=== PATIENT | female | born 1945 | race Caucasian/White ===

== ENCOUNTER 2017-09-07 10:11 | Day surgery (SDC) | payer BC ==
--- NOTE | 2017-09-06 17:46 | History and Physical Report ---
DATE: 09/06/2017. CHIEF COMPLAINT AND HISTORY OF CHIEF COMPLAINT: This is a patient with complicated pain which is currently being managed by spinal cord stimulator and an implanted spinal infusion system with hydromorphone. She is here for not only pump battery change but also spinal cord stimulator battery change. Her spinal infusion is hydromorphone at 2.5 mg a day. The spinal cord stimulator generator is in the left posterior gluteal margin, and the pump generator is in the right posterior gluteal margin. PAST MEDICAL HISTORY: Chronic obstructive pulmonary disease, peripheral neuropathy, asthmatic bronchitis, chronic bladder symptoms, reflux esophagitis, degenerative arthritis, depression, difficulty sleeping. PAST SURGICAL HISTORY: Carpal tunnel release, hysterectomy, spinal cord stimulator implant, spinal pump implant. EMPLOYMENT STATUS: Retired. MEDICATIONS ON ADMISSION: List provided. ALLERGIES: List provided. SOCIAL HISTORY: Noncontributory. FAMILY HISTORY: Asthma. PHYSICAL EXAMINATION: General: Height and weight are not known. Vital Signs: Unavailable. HEENT: Within normal limits. Lungs: Clear. Heart: Regular rate and rhythm. Abdomen: Nontender. Musculoskeletal: Examination of the musculoskeletal system shows the generators for the stimulator and the pump at the respective posterior gluteal margins. The pain pattern appears to be somewhat more radicular than focused; although there is diffuse pain and tenderness across the low back. Lower extremity functionality shows the indications of surgery bilaterally in the lower extremities focusing on the ankle and feet. There is a sensory deficit across both lower extremities following both an L4 and L5 pattern. There are motor deficits with weakness in the lower extremities, somewhat more right than left. Ambulation: Assistive device utilized. Neurologic: Cranial nerves are intact. IMPRESSION: 1. INTRACTABLE LUMBAR RADICULITIS, ICD-10 CODE M54.16 AND M54.17. 2. IMPLANTED SPINAL INFUSION SYSTEM WITH HYDROMORPHONE AND SPINAL CORD STIMULATOR, BOTH WITH BATTERY DEPLETION. PLAN: The patient is here for replacement of the pump and generator battery on an outpatient basis. There will be no changes made to the infusion characteristics of the pump, and stimulation patterns should remain unchanged with respect to the spinal cord stimulator. We will consider the procedure outpatient; although an overnight stay may be evaluated. JOB NUMBER: [id number] cc: Ed Yarbrough
[~2017-09-07 10:11] MED LIST: ACETAMINOPHEN 1,000 MG/100 ML BTL IV ONE; CLINDAMYCIN 600MG/50ML PREMIX 600 MG/50 ML BAG IVPB ONE; FAMOTIDINE 20MG TABLET PO ONE; HYDROMORPHONE HCL 0.4 GM in 0.9 % SODIUM CHLORIDE 10ML VIA 20 ML IV ONE; HYDROMORPHONE PF 2MG/ML AMP 0.004 MG in 0.9 % SODIUM CHLORIDE 10ML VIA 0.998 ML IV ONE; MECLIZINE 25 MG TABLET PO ONE; METOCLOPRAMIDE 10 MG TABLET PO ONE
[2017-09-07] MEDS ORDERED: BUPIVACAINE 0.5% W/EPI MPF 30 ML VIAL IVP ONE (10:12)
[2017-09-07] MEDS ORDERED: HYDROMORPHONE HCL 2 MG/ML VIAL IV ONE (10:12)
[2017-09-07] MEDS ORDERED: PROPOFOL 10 MG/ML VIAL IV ONE (10:12)
[2017-09-07] MEDS ORDERED: CLINDAMYCIN (PEDIATRIC DOSING) 150 MG/ML VIAL IVPB ONE (10:12)
[2017-09-07] MEDS ORDERED: LIDOCAINE 2% MDV (20MG/ML) 20ML VIAL IV ONE (10:12)
[2017-09-07] MEDS ORDERED: LIDOCAINE 1% W/EPI 1:200,000 MPF 30ML SQ ONE (10:12)
--- NOTE | 2017-09-07 16:05 | Operative Note - [place] ---
DATE OF SURGERY: 09/07/17 PREOPERATIVE DIAGNOSES: 1. INTRACTABLE LUMBAR RADICULITIS, ICD-10 CODE = M54.16. 2. POST CERVICAL LAMINECTOMY SYNDROME, ICD-10 CODE = M96.1. 3. SPINAL CORD STIMULATOR WITH INTERNAL GENERATOR DEPLETION, RIGHT FLANK. 4. SPINAL OPIOID INFUSION SYSTEM HYDROMORPHONE WITH BATTERY DEPLETION PROGRAMMABLE PUMP, LEFT POSTERIOR/SUPERIOR GLUTEAL MARGIN. OPERATION: 1. INCISION, SUBCUTANEOUS DISSECTION, AND REMOVAL AND REPLACEMENT OF PROGRAMMABLE PUMP AT LEFT POSTERIOR GLUTEAL MARGIN MEDTRONIC 20 ML PROGRAMMABLE PRE-FILLED HYDROMORPHONE 20 MG PER ML. 2. DIAGNOSTIC MYELOGRAPHY USING ACCESS PORT PROGRAMMABLE PUMP WITH RADIOLOGIC SUPERVISION AND INTERPRETATION. 3. CLOSURE OF INCISION VICRYL FOR FASCIA, RUNNING SUBCUTICULAR VICRYL FOR SKIN. DERMABOND CLOSURE. 4. INCISION, SUBCUTANEOUS DISSECTION, AND OPENING OF RIGHT FLANK INCISIONAL POUCH FOR SPINAL CORD STIMULATOR. 5. REMOVAL OF NONFUNCTIONING BATTERY DEPLETED GENERATOR, [employer]. REPLACEMENT WITH NONRECHARGEABLE [employer] INTERNAL PULSE GENERATOR INTERFACED TO LEADS. 6. CLOSURE OF INCISIONS VICRYL FOR FASCIA, RUNNING SUBCUTICULAR VICRYL FOR SKIN. 7. PROGRAMMING OF GENERATOR, COMPLEX PROGRAMMING, RECOVERY ROOM, 20 MINUTES. SURGEON: TOMMIE BROWN D.O. ANESTHESIA: LOCAL SEDATION. ANESTHESIA PROVIDER: KARLA PURCELL CRNA INDICATION: This patient with a history of intractable post cervical laminectomy syndrome and an intractable radiculitis, lumbar spine, has a spinal infusion system infusing Hydromorphone and a spinal cord stimulator; the stimulator generator has depleted and is nonfunctional. The spinal infusion pump battery is depleted. She is here for replacement of pump battery with appropriate diagnostics and replacement of internal pulse generator for spinal cord stimulator with replacement nonrechargeable. PROCEDURE: Intravenous line, vital sign monitoring, IV sedation, prepped and draped sterile technique. Patient position prone. The pump at the left posterior gluteal margin incision was identified. Skin infiltrated, incision made, and subcutaneous dissection was conducted to the pouch. The pouch was opened and the pump exteriorized. The pump was then from the internal catheter. The pump was then replaced with a new pump pre-filled Hydromorphone 20 mg per mL and placed onto the field. New pump was then interfaced with the existing spinal catheter, which had to be resected out of dense scar tissue within the posterior pouch. Antibiotic irrigation and Bovie for hemostasis. The new pump interfaced with the existing catheter was then placed back into the pouch and secured to the fascia with a nonabsorbable suture through one single pump eyelet. A curved #24-gauge Francois needle was inserted into the access port and 1 mL of catheter content was aspirated clearing the catheter of opioid and CSF mixture. Diagnostic myelography was then performed with contrast injected through the access port. Flow of contrast through the pump catheter connection into the spinal space at T7 confirmed appropriate and full functionality of the system. The incision was then closed Vicryl and a running subcuticular Vicryl for skin. Dermabond closure to approximate the edges of the wound. At the right flank, spinal cord stimulator generator, skin infiltrated, incision made, and subcutaneous dissection was conducted to the generator. The generator was then exteriorized and from the indwelling leads. A nonrechargeable battery , [employer], was then placed onto the field and then interfaced with the leads. Antibiotic irrigation and Bovie for hemostasis. Because of the size difference, the nonrechargeable much larger, the pouch had to be revised and extended. Antibiotic irrigation and Bovie for hemostasis. The generator was then placed into the pouch and secured to the fascia with nonabsorbable suture. The incision was then closed Vicryl for fascia, running subcuticular Vicryl for skin after the appropriate interface had been made. Dermabond closure over the incision. She was transported to the Recovery Room stable. No side-effects from the procedure or the sedation. When fully awake and alert, she was prepared for discharge. DISCHARGE INSTRUCTIONS: 1. She sites to remain clean and dry. No showering or bathing for 24 hours. She can then shower but not bathe. She should not sit in water. 2. Standard medications resumed including Levaquin, the antibiotic, 500 mg once a day for 14 days. 3. The office will contact the patient at home in the next 24-48 hours to set up the appointment in 5-7 days to evaluate the incisions. Until that time, she should keep her activities low. Limit bend, lift, push, pull. All other instructions provided, numbers to contact with problems given. She will be evaluated upon discharge. cc: Dr. Nisa Vera JOB NUMBER: [id number] [facility]
== END 2017-09-07 13:00 | disposition home or self-care (01) ==
LOC: SUR 10:11
PROVIDERS: ATTEND Pain Medicine Interventional Pain Medicine
DX: T85.890A Other specified complication of nervous system prosthetic devices, implants and grafts, initial encounter (principal); T85.193A Other mechanical complication of implanted electronic neurostimulator, generator, initial encounter; M54.16 Radiculopathy, lumbar region; M96.1 Postlaminectomy syndrome, not elsewhere classified; E78.00 Pure hypercholesterolemia, unspecified; I10 Essential (primary) hypertension; J44.9 Chronic obstructive pulmonary disease, unspecified
CPT/HCPCS: 63685; 62362; 00300; 62368; 85002; Q9967; J1170 ×2